=== PATIENT | female | born 1970 | race Hispanic/Latino ===

== ENCOUNTER 2023-03-17 02:49 | Emergency (ER) | payer SELFPAY ==
--- OUTSIDE RECORDS SUMMARY | 2023-03-17 02:59 | XMS REPORT | Continuity of Care Document ---
:1970 Author Organization [facility] t Address [address] [place] [address] Care Team Providers Name Role Phone STEVE BARBARA Gerard Attending Clinician Unavailable Lab, Keiko Rosen I Attending Clinician Unavailable Stephanie Prabhakar PA-C Attending Clinician STEPHANIE PRABHAKAR Attending Clinician Unavailable Payers Payer Name Policy Type Policy Number Effective Date Expiration Date S ource Problems This patient has no known problems. Allergies, Adverse Reactions, Alerts Allergy Allergy Status Severity Reaction(s) Onset Inactive Treating Comm ents Source Name Type Date Date Clinician NO KNOWN Drug Active Univers ALLERGIE Class ity of S [facility] Social History Social Habit Start Date Stop Date Quantity Comments Source [facility] to SARS-CoV-2 Not sure [facility] Sm[facility] Status Start Date Stop Date Source Unknown if [facility] Medications This patient has no known medications. Procedures This patient has no known procedures. Encounters Start End Encounter Admission Attending Care Care Encounter Source Date/Time Date/Time Type Type Clinicians Facility Department ID 2021-03-13 2021-03-13 Outpatient R STEVE [facility] [id number] [facility] 09:00:00 09:00:00 BARBARA snell o f [facility] 2020-06-06 2020-06-06 Laboratory Lab, Keiko Fam Pob I [facility] [id number] [facility] 18:22:45 18:29:10 Only Stephanie Prabhakar [id number] [id number] Uriel as Profbelemio [phone] [address] 2020-06-06 2020-06-06 Outpatient R PRABHAKAR, [facility] [id number] [facility] 18:20:00 18:20:00 STEPHANIE snell [facility] Results This patient has no known results.
[2023-03-17 03:39] LABS: Absolute Lymphocytes (CBC) 3.7 K/uL (0.7-4.9); Hematocrit 38.3 % (36.0-45.0); Lymphocytes % 38.6 % (15.3-44.8); MCV 86.8 fL (80-100); MPV 8.1 fL (7.6-11.3); Platelets 279 thou/uL (152-406); Protime INR 0.99; RBC Red Blood Cell Count 4.42 M/uL (3.86-4.86)
[2023-03-17] MEDS ORDERED: NA CHLORIDE 0.9% 1,000 ML ONE (03:40)
[2023-03-17 04:11] LABS: Albumin 3.3 g/dL (3.4-5.0); Bilirubin Total 0.3 mg/dL (0.2-1.0); Potassium 3.5 mEq/L (3.5-5.1); Protein, Total 6.9 g/dL (6.4-8.2); Thyroid Stimulating Hormone 0.012 uIU/mL (0.358-3.740); Troponin High Sensitivity 7.5 pg/mL (<58.9)
--- NOTE | 2023-03-17 06:07 | ER ---
Nurse's Notes [facility] Name: Magda Vincent Age: 52 yrs Sex: Female : 1970 Arrival Date: 03/17/2023 Time: 02:49 Bed 8 Private MD: Diagnosis: Chest pain, unspecified;Postoperative chest pain, atypical chest pain Presentation: 03/17 02:56 Chief complaint: Patient states: chest pain began at 0230 back pain yesterday took kl Tylenol # 3 at 1130 pm woke up this am with chest pain denies SOB nausea Meniscus repair x 5 days ago. Coronavirus screen: Vaccine status: Patient reports receiving the 2nd dose of the covid vaccine. Ebola Screen: Patient negative for fever greater than or equal to 101.5 degrees Fahrenheit, and additional compatible Ebola Virus Disease symptoms. Initial Sepsis Screen: Does the patient meet any 2 criteria? No. Patient's initial sepsis screen is negative. Does the patient have a suspected source of infection? No. Patient's initial sepsis screen is negative. Risk Assessment: Do you want to hurt yourself or someone else? Patient reports no desire to harm self or others. 02:56 Method Of Arrival: EMS: [facility] 02:56 Acuity: BETSY 3 kl 03:03 Care prior to arrival: Medication(s) given: ASA, 81 mg, x 4. kl 03:10 Onset of symptoms was March 17, 2023. Triage Assessment: 03:01 General: Appears uncomfortable, Behavior is calm, cooperative. Pain: Complains of pain kl in anterior aspect of right upper chest Pain currently is 8 out of 10 on a pain scale. at worst was 10 out of 10 on a pain scale. Quality of pain is described as aching. EENT: No deficits noted. Neuro: No deficits noted. Cardiovascular: Rhythm is regular. Respiratory: No deficits noted. GI: No deficits noted. GI: No deficits noted. No signs and/or symptoms were reported involving the gastrointestinal system. : No deficits noted. No signs and/or symptoms were reported regarding the genitourinary system. Derm: No deficits noted. No signs and/or symptoms reported regarding the dermatologic system. Historical: - Allergies: 02:59 No Known Allergies; kl - Home Meds: 02:59 levothyroxine oral [Active]; atorvastatin oral [Active]; Tylenol #3 Oral [Active]; kl - PMHx: 02:59 high cholesterol; Hypothyroidism; kl - PSHx: 02:59 Cholecystectomy; meniscus repair left knee; kl - Immunization history:: Adult Immunizations not up to date. - Social history:: Smoking status: Patient denies any tobacco usage or history of. - Family history:: not pertinent. Screenin:09 [facility] ED Fall Risk Assessment (Adult) History of falling in the last 3 months, rv including since admission No falls in past 3 months (0 pts) Confusion or Disorientation No (0 pts) Score/Fall Risk Level 0 - 2 = Low Risk Oriented to surroundings, Maintained a safe environment, Educated pt \T\ family on fall prevention, incl call for assistance when getting out of bed, Assessed \T\ reinforced patient's understanding of fall precautions, Provided non-skid footwear, Hourly rounding (assess needs \T\ fall precautionary measures) done, Used ambulatory aids as needed (educated on \T\ assisted with), Used gait belt as appropriate. Abuse screen: Denies threats or abuse. Denies injuries from another. Nutritional screening: No deficits noted. Tuberculosis screening: No symptoms or risk factors identified. Assessment: 03:08 General: Appears comfortable, Behavior is calm, cooperative. Pain: Complains of pain in rv chest. Neuro: Level of Consciousness is awake, alert, obeys commands, Oriented to person, place, time, situation. Cardiovascular: Capillary refill < 3 seconds Patient's skin is warm and dry. Rhythm is regular Chest pain is located in chest wall. Respiratory: Airway is patent Respiratory effort is even, unlabored, Breath sounds are clear bilaterally. Derm: Skin is intact. Vital Signs: 02:56 BP 126 / 86; Pulse 80; Resp 98; Temp 98.4(O); Pulse Ox 100% on R/A; Weight 94 kg; kl Height 5 ft. 3 in. ; Pain 8/10; 03:05 Resp 18; kl 04:00 BP 121 / 81; Pulse 76; Resp 16; Pulse Ox 100% on R/A; rv 05:00 BP 125 / 76; Pulse 80; Resp 18; Pulse Ox 100% on R/A; rv 06:00 BP 118 / 85; Pulse 75; Resp 17; Temp 98; Pulse Ox 100% on R/A; rv 02:56 Body Mass Index 36.71 (94.00 kg, 160.02 cm) kl 02:56 Pain Scale: Adult kl [place] Coma Score: 06:00 Eye Response: spontaneous(4). Motor Response: obeys commands(6). Verbal Response: rv oriented(5). Total: 15. ED Course: 02:55 Patient arrived in ED. rv1 02:56 Luis Roberson, ROSHAN is Primary Nurse. rv 02:59 Triage completed. kl 03:02 Maintain EMS IV. Dressing intact. Good blood return noted. Site clean \T\ dry. Gauge \T\ kl site: 20 gauge right hand. 03:08 Arm band placed on right wrist. rv 03:09 No provider procedures requiring assistance completed. rv 03:09 Patient has correct armband on for positive identification. Placed in gown. Bed in low rv position. Call light in reach. Side rails up X 1. Provided Education on: CHEST PAIN. 03:11 EKG done, by screening technician. reviewed by John Maxwell MD. oe 03:12 John Maxwell MD is Attending Physician. sp4 04:40 CT Chest Angio In Process Unspecified. EDMS 06:17 IV discontinued, intact, bleeding controlled, No redness/swelling at site. Pressure rv dressing applied. Administered Medications: 03:27 Drug: NS 0.9% IV 1000 ml Route: IV; Rate: 1 bolus; Site: right hand; rv Medication: 03:09 VIS not applicable for this client. rv Outcome: 06:06 Discharge ordered by . sp4 06:17 Discharged to home ambulatory. rv 06:17 Condition: good 06:17 Discharge instructions given to patient, Instructed on discharge instructions, follow up and referral plans. Demonstrated understanding of instructions, follow-up care. 06:18 Patient left the ED. rv Signatures: Dispatcher [employer] EDMS Cande Gonzalez RN RN kl [place], [place] oe Luis Roberson, Debibe Bagley RN rv1 John Maxwell MD MD sp4
--- NOTE | 2023-03-17 06:07 | EDPHYS ---
Physician Documentation [facility] Name: Magda Vincent Age: 52 yrs Sex: Female : 1970 Arrival Date: 03/17/2023 Time: 02:49 Bed 8 Private MD: ED Physician John Maxwell HPI: 03/17 03:12 This 52 yrs old Female presents to ER via EMS with complaints of chest pains . sp4 03:22 52-year-old female with past medical history of hypercholesterolemia hypothyroidism, sp4 presents with acute onset of right-sided chest pain, started nausea today when awakening 2 to 3 hours ago. Patient reports right lateral meniscus repair via laparoscopic surgery on 03/12/2023, this was done by Dr. Kapoor at surgery clinic at [place]. Patient denied lower extremity swelling or pain. Patient's postoperative incisions are clean dry and intact. . 06:04 Denied history of pulmonary embolus. sp4 Historical: - Allergies: 02:59 No Known Allergies; kl - Home Meds: 02:59 levothyroxine oral [Active]; atorvastatin oral [Active]; Tylenol #3 Oral [Active]; kl - PMHx: 02:59 high cholesterol; Hypothyroidism; kl - PSHx: 02:59 Cholecystectomy; meniscus repair left knee; kl - Immunization history:: Adult Immunizations not up to date. - Social history:: Smoking status: Patient denies any tobacco usage or history of. - Family history:: not pertinent. ROS: 03:22 Constitutional: Negative for fever, chills, and weight loss, Cardiovascular: Positive sp4 for chest pain . Negative for shortness of breath 03:22 All other systems are negative. Exam: 03:22 Constitutional: This is a well developed, well nourished patient who is awake, alert, sp4 and in no acute distress. Head/Face: Normocephalic, atraumatic. Eyes: Pupils equal round and reactive to light, extra-ocular motions intact. Lids and lashes normal. Conjunctiva and sclera are not injected. Cornea within normal limits. Periorbital areas with no swelling, redness, or edema. ENT: Nares patent. No nasal discharge, no septal abnormalities noted. Tympanic membranes are normal and external auditory canals are clear. Oropharynx with no redness, swelling, or masses, exudates, or evidence of obstruction, uvula midline. Mucous membranes moist. Neck: Trachea midline, no thyromegaly or masses palpated, and no cervical lymphadenopathy. Supple, full range of motion without nuchal rigidity, or vertebral point tenderness. Chest/axilla: Normal chest wall appearance and motion. Nontender with no deformity. No lesions are appreciated. Cardiovascular: Regular rate and rhythm with a normal S1 and S2. No gallops, murmurs, or rubs. Normal PMI, no JVD. No pulse deficits. Respiratory: Lungs have equal breath sounds bilaterally, clear to auscultation and percussion. No rales, rhonchi or wheezes noted. No increased work of breathing, no retractions or nasal flaring. Abdomen/GI: Soft, non-tender, with normal bowel sounds. No distension or tympany. No guarding or rebound. No evidence of tenderness throughout. Back: No spinal tenderness. No costovertebral tenderness. Skin: Warm, dry with normal turgor. Normal color with no rashes, no lesions, and no evidence of cellulitis. MS/ Extremity: Pulses equal, no cyanosis. Neurovascular intact. Full, normal range of motion. Right knee 3 postoperative incisions that are clean dry and intact. Each incision contains 4 soledad. All 3 incisions appear to be a result of recent laparoscopic surgery on the meniscus. Neuro: Awake and alert, GCS 15, oriented to person, place, time, and situation. Cranial nerves II-XII grossly intact. Motor strength 5/5 in all extremities. Sensory grossly intact. Psych: Awake, alert, with orientation to person, place and time. Behavior, mood, and affect are within normal limits 03:22 ECG was reviewed by the Attending Physician. Carlton Man EKG time 0304, there is sp4 normal sinus rhythm at the rate of 73, no ST elevation or depression, no ectopy, normal intervals, overall normal EKG Vital Signs: 02:56 BP 126 / 86; Pulse 80; Resp 98; Temp 98.4(O); Pulse Ox 100% on R/A; Weight 94 kg; kl Height 5 ft. 3 in. ; Pain 8/10; 03:05 Resp 18; kl 04:00 BP 121 / 81; Pulse 76; Resp 16; Pulse Ox 100% on R/A; rv 05:00 BP 125 / 76; Pulse 80; Resp 18; Pulse Ox 100% on R/A; rv 06:00 BP 118 / 85; Pulse 75; Resp 17; Temp 98; Pulse Ox 100% on R/A; rv 02:56 Body Mass Index 36.71 (94.00 kg, 160.02 cm) kl 02:56 Pain Scale: Adult kl [place] Coma Score: 06:00 Eye Response: spontaneous(4). Motor Response: obeys commands(6). Verbal Response: rv oriented(5). Total: 15. MDM: 03:31 Patient medically screened. sp4 06:04 Differential Diagnosis altered mental status, sepsis, flu. Data reviewed: vital signs, sp4 nurses notes, EMS record, old medical records, lab test result(s), EKG, radiologic studies, CT scan. Consideration of Admission/Observation Escalation of care including admission/observation considered. ED course: CT - IMPRESSION: 1. No CT evidence to suggest acute or chronic pulmonary embolism, aortic aneurysm or aortic dissection. 2. No evidence of acute intrathoracic disease. There is very mild bibasilar fibrosis and/or atelectasis.. 03/17 03:12 Order name: Troponin High Sensitivity; Complete Time: 05:15 rv 03/17 03:12 Order name: CBC with Diff; Complete Time: 05:15 rv 03/17 03:12 Order name: CMP; Complete Time: 05:15 rv 03/17 03:21 Order name: PT-INR; Complete Time: 05:15 sp4 03/17 03:35 Order name: Creatine Phosphokinase; Complete Time: 05:15 EDMS 03/17 03:35 Order name: Thyroid Stimulating Hormone; Complete Time: 05:15 EDMS 03/17 05:15 Order name: Troponin High Sensitivity; Complete Time: 06:04 sp4 03/17 03:20 Order name: CT Chest Angio sp4 03/17 03:21 Order name: Saline Lock; Complete Time: 03:21 sp4 EC:22 Rate is 73 beats/min. Rhythm is regular, Normal Sinus Rhythm. QRS [place] is Normal. [place] sp4 interval is normal. QRS interval is normal. QT interval is normal. T waves are Normal. Clinical impression: Normal ECG. Interpreted by me. Administered Medications: 03:27 Drug: NS 0.9% IV 1000 ml Route: IV; Rate: 1 bolus; Site: right hand; rv Disposition Summary: 03/17/23 06:06 Discharge Ordered Location: Home sp4 Problem: new sp4 Symptoms: have improved sp4 Condition: Stable sp4 Diagnosis - Chest pain, unspecified sp4 - Postoperative chest pain, atypical chest pain sp4 Followup: sp4 - With: Private Physician - When: 7 - 10 days - Reason: Recheck today's complaints Discharge Instructions: - Discharge Summary Sheet sp4 - Nonspecific Chest Pain, Adult sp4 Forms: - Patient Portal Instructions sp4 - Leadership Thank You Letter sp4 Signatures: Dispatcher [employer] Cande Santillan RN RN Luis Gillis RN RN John Randall MD MD sp4 Corrections: (The following items were deleted from the chart) 03:34 03:21 CREATINE PHOSPHOKINASE+C.LAB.BRZ ordered. EDMS EDMS 03:34 03:21 THYROID STIMULAT HORMONE+C.LAB.BRZ ordered. EDMS EDMS
[2023-03-17 06:22] VITALS: O2SAT 100
[2023-03-17 06:27] VITALS: BP 118/85; TEMP 98
--- NOTE | 2023-03-17 11:01 | RAD REPORT ---
EXAM DESCRIPTION: CT - Chest Angio - 03/17/2023 6:33 am CLINICAL HISTORY: 52 years Female CHEST PAIN. TECHNIQUE: Following the administration of intravenous contrast, multiple high-resolution axial imag es of the chest were performed followed by sagittal and coronal reconstructed images. Coronal oblique MIP images were also performed. The CT study is performed according to ALARA (as low as reasonably a chievable) or ALARA/IMAGE GENTLY, with automatic adjustment of mA and/or kV according to patient size . Performed on: 03/17/2023 at 4:31 AM COMPARISON: No prior studies were available for comparison. FINDINGS: There is satisfactory visualization and contrast opacification of pulmonary arteries. No definite intra-arterial filling defects are identified to suggest acute or chronic pulmonary embolis m. The thoracic aorta is normal in caliber and contour without evidence of aneurysm or dissection. The lungs are well expanded and are clear. There is very mild bibasilar fibrosis and/or atelectasis. There is no evidence of a pneumothorax. There are no pleural effusions. The central airways are paten t. The heart is normal in size. There is no pericardial effusion. There is no reflux of contrast into th e hepatic veins to suggest right heart strain.The RV/LV ratio is within normal limits. There is no evidence of hilar, mediastinal or axillary lymphadenopathy. No acute osseous abnormality is identified. The visualized upper abdominal structures are unremarkable. The gallbladder is surgically absent. IMPRESSION: 1. No CT evidence to suggest acute or chronic pulmonary embolism, aortic aneurysm or a ortic dissection. 2. No evidence of acute intrathoracic disease. There is very mild bibasilar fibrosis and/or atelect asis. Electronically signed by: Audrey Hunt DO 03/17/2023 4:56 AM CDT Due to temporary technical issues with the PACS/Fluency reporting system, reports are being signed by the in house radiologist without review as a courtesy to ensure prompt reporting. The interpreting r adiologist is fully responsible for the content of the report.
--- NOTE | 2023-03-17 13:03 | EKG ---
Test Date: 2023-03-17 Test Time: 03:04:52 Behavioral Sciences Instructor: INOCENCIA MEASUREMENT RESULTS: Intervals: Rate: 73 ND: 158 QRSD: 84 QT: 382 QTc: 420 [place]: P: 24 ND: 158 QRS: 7 T: 17 INTERPRETIVE STATEMENTS: Normal sinus rhythm Normal ECG Compared to ECG 07/24/2013 15:46:42 No significant changes Electronically Signed On 03-17-23 13:02:50 CDT by Moshe Jimenez
== END 2023-03-17 06:18 | disposition home or self-care (01) ==
LOC: ER 02:49
DX: G89.18 Other acute postprocedural pain (principal); Z98.890 Other specified postprocedural states; E78.00 Pure hypercholesterolemia, unspecified; E03.9 Hypothyroidism, unspecified
CPT/HCPCS: 36415; 71275; 80053; 82550; 84443; 84484; 85025; 85610; 93005; J7030; Q9967